=== PATIENT | male | born 1945 | race Caucasian/White ===

== ENCOUNTER 2018-06-22 23:08 | Emergency (ER) | payer MEDICARE ==
[~2018-06-22] VITALS: Ht 152.4 cm; Wt 49.9 kg
[2018-06-22] MEDS ORDERED: ASPI81CH PO (23:22)
[2018-06-22 23:54] LABS: BASOPHILS ABSOLUTE AUTO 0.04 K/mm3 (0.00-0.23); BASOPHILS PERCENT AUTO 0 % (0-2); EOSINOPHILS PERCENT AUTO 1 % (0-6); Hematocrit 41.8 % (37.0-53.0); Hemoglobin 14.3 g/dL (13.5-17.5); IMMATURE GRAN ABSOLUTE AUTO 0.06 K/mm3 (0.00-0.10); IMMATURE GRAN PERCENT AUTO 1 % (0-1); LYMPHOCYTES ABSOLUTE AUTO 1.24 K/mm3 (0.84-5.20); LYMPHOCYTES PERCENT AUTO 11 % (21-46); MONOCYTES ABSOLUTE AUTO 0.63 K/mm3 (0.16-1.47); MONOCYTES PERCENT AUTO 6 % (4-13); Mean Corpuscular HGB 33.6 pg (26.0-34.0); Mean Corpuscular HGB Conc 34.2 g/dL (31.5-36.5); Mean Corpuscular Volume 98 fL (80-100); Mean Platelet Volume 8.9 fL (9.1-12.4); NEUTROPHILS ABSOLUTE AUTO 9.21 K/mm3 (1.96-9.15); NEUTROPHILS PERCENT AUTO 82 % (41-73); Platelet Count 400 K/mm3 (150-400); RDW Coefficient Variation 11.9 % (11.7-14.2); Red Blood Cell Count 4.26 M/mm3 (4.30-5.90); White Blood Cell Count 11.28 K/mm3 (4.00-11.30)
[2018-06-23 00:06] LABS: Alanine Aminotransfer (ALT/SGP 11 U/L (12-78); Albumin, Blood 3.3 g/dL (3.4-5.0); Albumin/Globulin Ratio 0.8 (0.8-1.8); Alk Phos 95 U/L (50-136); Anion Gap 8 mmol/L (6-16); Aspartate Aminotrans (AST/SGOT 8 U/L (12-37); Bilirubin, Total 0.3 mg/dL (0.1-1.0); Blood Urea Nitrogen 22 mg/dL (8-24); Bun/Creatinine Ratio 35.3 (12.0-20.0); CO2, Blood 27 mmol/L (21-32); Calcium, Blood 8.5 mg/dL (8.5-10.1); Chloride, Blood 104 mmol/L (98-108); Creatinine, Blood 0.62 mg/dL (0.60-1.20); Globulin, Blood 4.1 g/dL (2.2-4.0); Glomerular Filtration Rate >60 (60-); Glucose, Blood 116 mg/dL (70-99); Potassium, Blood 3.2 mmol/L (3.5-5.5); Sodium, Blood 139 mmol/L (136-145); Total Protein, Blood 7.4 g/dL (6.4-8.2)
[2018-06-23 00:40] LABS: Source, Urine Clean Catch
[2018-06-23 00:43] LABS: Bilirubin, Urine Neg (Neg); Blood, Urine Neg (Neg); Glucose Qualitative, Urine 2+ (Neg); Ketones, Urine 1+ (Neg); Leukocyte Esterase, Urine 1+ (Neg); Nitrite, Urine Neg (Neg); Protein, Urine 1+ (Neg); Urobilinogen, Urine 1+ (Normal)
[2018-06-23 00:45] LABS: Appearance, Urine Clear (Clear); Color, Urine Yellow (P-Yellow)
[2018-06-23 00:49] LABS: Bacteria Mod /hpf; Red Blood Cells, Urine 0-2 /hpf (0-2); Squamous Epithelial Cells Not Seen /hpf (Few); White Blood Cells, Urine 0-2 /hpf (0-5)
[2018-06-23 00:50] LABS: Calcium Oxalate Crystals Few /hpf
[2018-06-23] MEDS ORDERED: CEPH500 PO (01:05)
== END 2018-06-23 01:53 | disposition home or self-care (01) ==
LOC: ER 23:08
PROVIDERS: Emergency Medicine
DX: N39.0 Urinary tract infection, site not specified (principal); Z79.82 Long term (current) use of aspirin; F03.90 Unspecified dementia, unspecified severity, without behavioral disturbance, psychotic disturbance, mood disturbance, and anxiety
CPT/HCPCS: 71046; 80053; 81001; 85025; 87086; 93005; 93010; 99285-25

== ENCOUNTER 2019-12-20 09:53 | Inpatient (IN) | payer OTHER ==
[~2019-12-20] VITALS: Ht 180.3 cm; Wt 55.8 kg
[~2019-12-20 09:53] MED LIST: ASPI81CH PO; Aspirin EC81 MG PO; CEPH500 PO; Flomax0.4 MG PO; MIRT15 PO; OLAN5 PO; ZYRTEC10 M1 PO
[2019-12-20 10:22] LABS: BASOPHILS ABSOLUTE AUTO 0.03 K/mm3 (0.00-0.23); BASOPHILS PERCENT AUTO 1 % (0-2); EOSINOPHILS ABSOLUTE AUTO 0.04 K/mm3 (0.00-0.68); EOSINOPHILS PERCENT AUTO 1 % (0-6); Hematocrit 46.8 % (37.0-53.0); Hemoglobin 15.1 g/dL (13.5-17.5); IMMATURE GRAN ABSOLUTE AUTO 0.02 K/mm3 (0.00-0.10); IMMATURE GRAN PERCENT AUTO 0 % (0-1); LYMPHOCYTES ABSOLUTE AUTO 0.91 K/mm3 (0.84-5.20); LYMPHOCYTES PERCENT AUTO 17 % (21-46); MONOCYTES ABSOLUTE AUTO 0.28 K/mm3 (0.16-1.47); MONOCYTES PERCENT AUTO 5 % (4-13); Mean Corpuscular HGB 31.3 pg (26.0-34.0); Mean Corpuscular HGB Conc 32.3 g/dL (31.5-36.5); Mean Corpuscular Volume 97 fL (80-100); Mean Platelet Volume 9.3 fL (9.1-12.4); NEUTROPHILS ABSOLUTE AUTO 4.11 K/mm3 (1.96-9.15); NEUTROPHILS PERCENT AUTO 76 % (41-73); Platelet Count 219 K/mm3 (150-400); RDW Coefficient Variation 13.3 % (11.7-14.2); RDW Standard Deviation 48.1 fL (35.1-46.3); Red Blood Cell Count 4.82 M/mm3 (4.30-5.90); White Blood Cell Count 5.39 K/mm3 (4.00-11.30)
[2019-12-20 10:36] LABS: Alanine Aminotransfer (ALT/SGP 11 U/L (12-78); Albumin, Blood 3.3 g/dL (3.4-5.0); Albumin/Globulin Ratio 0.9 (0.8-1.8); Alk Phos 82 U/L (50-136); Anion Gap 6 mmol/L (6-16); Aspartate Aminotrans (AST/SGOT 10 U/L (12-37); Bilirubin, Total 0.3 mg/dL (0.1-1.0); Blood Urea Nitrogen 12 mg/dL (8-24); Bun/Creatinine Ratio 17.1 (12.0-20.0); CO2, Blood 26 mmol/L (21-32); Calcium, Blood 8.7 mg/dL (8.5-10.1); Chloride, Blood 107 mmol/L (98-108); Globulin, Blood 3.7 g/dL (2.2-4.0); Glomerular Filtration Rate >60 (60-); Glucose, Blood 141 mg/dL (70-99); Potassium, Blood 4.3 mmol/L (3.5-5.5); Sodium, Blood 139 mmol/L (136-145)
[2019-12-20] MEDS ORDERED: REMERON15 MG PO (11:48)
[2019-12-20 11:51] LABS: Prothrombin Time Results 10.7 Sec (9.7-11.5)
--- NOTE | 2019-12-20 12:38 | NUR ---
pt arrived to pcu 12 from ed, nstemi, will hang hep gtt, pt able to answer some quesions, hx dementia, pleasant and cooperative with care, flat affect, lungs are dim t/o, resp even and unlabored, no cough noted, hrr, tele in place running sr per monitor, see strip, no edema noted, ppp+1, cap refill <3sec, vs stable, afebrile, iv site is clear and patent, btx4, abd flat soft nontender, wears briefs, skin dry, has old bed sore on right hip, mostly healed, maew, general weakness, geraldine, call light in reach.
--- NOTE | 2019-12-20 13:27 | NUR ---
SIGNED CONSENT FOR ANGIO IS PLACED IN PT CHART
--- NOTE | 2019-12-20 17:27 | NUR ---
SHIFT NOTE THIS RN ASSUMED PT CARE AT 1300 SHORTLY AFTER PT ARRIVED TO THE PCU. PT CONSENTS WERE SIGNED. HEPARIN DRIP AND NS DRIP ARE INFUSING PER ORDERS. PT IS RESTING IN BED CP FREE. CRITICAL TROPONIN IS CALLED FROM LAB THIS EVENING, PT IS ON SCHEDULE FOR ANGIO IN THE AM AND HAS BEEN CONSULTED BY DR FIGUEROA SINCE HIS ARRIVAL. VSS. PT CONTINUES TO DENY CP AT THE TIME OF THIS NOTE. PT IS ALERT, HE IS SLOW TO ANSWER QUESTIONS, HAS HX OF DEMENTIA BUT APPEARS TO BE AT HIS REPORTED BASELINE FROM PREVIOUS RN REPORT.
[2019-12-21 00:16] LABS: Hematocrit 39.2 % (37.0-53.0); Hemoglobin 13.1 g/dL (13.5-17.5); Mean Corpuscular HGB 31.4 pg (26.0-34.0); Mean Corpuscular HGB Conc 33.4 g/dL (31.5-36.5); Mean Corpuscular Volume 94 fL (80-100); Platelet Count 241 K/mm3 (150-400); RDW Coefficient Variation 13.2 % (11.7-14.2); RDW Standard Deviation 45.4 fL (35.1-46.3); Red Blood Cell Count 4.17 M/mm3 (4.30-5.90); White Blood Cell Count 6.31 K/mm3 (4.00-11.30)
[2019-12-21 00:30] LABS: Anion Gap 5 mmol/L (6-16); Blood Urea Nitrogen 9 mg/dL (8-24); Bun/Creatinine Ratio 12.6 (12.0-20.0); CO2, Blood 28 mmol/L (21-32); Calcium, Blood 8.2 mg/dL (8.5-10.1); Chloride, Blood 110 mmol/L (98-108); Creatinine, Blood 0.72 mg/dL (0.60-1.20); Glomerular Filtration Rate >60 (60-); Glucose, Blood 83 mg/dL (70-99); Potassium, Blood 3.7 mmol/L (3.5-5.5); Sodium, Blood 143 mmol/L (136-145)
--- NOTE | 2019-12-21 05:20 | NUR ---
END OF SHIFT SUMMARY PT AXO. DENIES CP T/O NIGHT. ANSWERING Q'S APPROPRIATELY. VSS. HEART RHYTHM NOTED TO WITCH BETWEEN SINUS RHTYHM TO A POSSIBLE WAP, TO AN ACCELERATED JUNCTIONAL, AND OCCASIONAL PVC'S AND TRIPLETS. PT ASYMPTOMATIC TO THESE RHYTHMS. PT ON RA. PT CONTINUES ON HEPARIN GTT. TROP HAS INCREASED SIGNIFICANTLY. PT NPO MIDNIGHT FOR ANGIOGRAM IN AM. BED ALARM IN PLACE. PT RESTING QUIETLY IN BED T/O SHIFT. VERY PLEASANT AND THANKFUL FOR CARE. WILL CONTINUE TO MONITOR UNTIL SHIFT CHANGE.
--- NOTE | 2019-12-21 07:39 | NUR ---
ASSUMED PATIENT CARE. PATIENT RESTING COMFORTABLY IN BED, CONVERSING WITH NURSING STAFF. NO SIGNS OF ACUTE DISTRESS, PATIENT DENIES CHEST PAIN. PATIENT TAKEN TO MEDICAL IMAGING DIRECTOR FOR ANGIO.
--- NOTE | 2019-12-21 09:48 | NUR ---
PATIENT RETURNED FROM [facility], TR BAND IN PLACE ON R. RADIAL SITE. NO DISCHARGE NOTED, NO HEMATOMA NOTED. PATIENT DENIES PAIN, WCTM.
--- NOTE | 2019-12-21 11:53 | NUR ---
echocardiogram completed
--- NOTE | 2019-12-21 17:34 | NUR ---
PATIENT WENT TO [facility] TODAY FOR ANGIO, R RADIAL ACCESS SITE. X2 STENTS PLACED. PATIENT DENIED CHEST PAIN THIS SHIFT, VSS. TR BAND SUCCESSFUL REMOVED, NO SIGNS OF BLEEDING/HEMATOMA. PATIENT ABLE TO AMBULATE INDEPENDENTLY, SBA FOR ASSISTANCE WITH R ARMBOARD. PLAN IS TO CONTINUE MEDICAL MANAGEMENT FROM THIS POINT. PATIENT ON ROOM AIR THIS SHIFT, TOLERATING [facility] SOFT DIET WELL.
--- NOTE | 2019-12-21 17:43 | NUR ---
PATIENT ADMITTED VIA ED THIS SHIFT, DAUGHTER AT BEDSIDE. PATIENT DENIES CHEST PAIN, ENDORSES IMPROVEMENT IN SOB POST NEB TREATMENT. PATIENT REMAINS ON HIGH FLOW NC AT 6 L, SATS IN LOW 90S. PATIENT HYPERTENSIVE IN ED, BP IMPROVEMENT ON TRANSFER TO PCU. PLAN IS TO CONTINUE HOME MEDS, MONITOR H&H WITH HX OF ANEMIA, PLAN IS TO CONTINUE DIURESIS VIA IV LASIX.
--- NOTE | 2019-12-21 20:51 | NUR ---
PT RESTING COMFORTABLY IN BED; CHEERFUL; PT REFUSED DINNER TRAY.
--- NOTE | 2019-12-21 20:52 | NUR ---
74 Y/O SLENDER MALE RESTED COMFORTABLY.
--- NOTE | 2019-12-22 05:45 | NUR ---
SHIFT SUMMARY: 74 Y/O MALE RESTED COMFORTABLY ALL SHIFT; PTS RIGHT WRIST WITHOUT EDEMA OR PAIN WHILE WEARING ARM BOARD; ALERT AND ORIENTED X 4; DENIES PAIN OR NAUSEA; TELEMETRY REFLECTS NSR PER BENIGNO--[employer] BOAT FINISHER; BED LOW POSITION WITH CALL LIGHT AT SIDE.
[2019-12-22 06:01] LABS: BASOPHILS ABSOLUTE AUTO 0.04 K/mm3 (0.00-0.23); BASOPHILS PERCENT AUTO 1 % (0-2); EOSINOPHILS PERCENT AUTO 2 % (0-6); Hematocrit 37.7 % (37.0-53.0); Hemoglobin 12.4 g/dL (13.5-17.5); IMMATURE GRAN ABSOLUTE AUTO 0.02 K/mm3 (0.00-0.10); IMMATURE GRAN PERCENT AUTO 0 % (0-1); LYMPHOCYTES ABSOLUTE AUTO 1.37 K/mm3 (0.84-5.20); LYMPHOCYTES PERCENT AUTO 20 % (21-46); MONOCYTES ABSOLUTE AUTO 0.49 K/mm3 (0.16-1.47); MONOCYTES PERCENT AUTO 7 % (4-13); Mean Corpuscular HGB Conc 32.9 g/dL (31.5-36.5); Mean Corpuscular Volume 94 fL (80-100); Mean Platelet Volume 9.4 fL (9.1-12.4); NEUTROPHILS ABSOLUTE AUTO 4.68 K/mm3 (1.96-9.15); NEUTROPHILS PERCENT AUTO 70 % (41-73); Platelet Count 224 K/mm3 (150-400); RDW Coefficient Variation 13.3 % (11.7-14.2); RDW Standard Deviation 45.7 fL (35.1-46.3)
[2019-12-22 06:20] LABS: Anion Gap 4 mmol/L (6-16); Blood Urea Nitrogen 7 mg/dL (8-24); Bun/Creatinine Ratio 12.4 (12.0-20.0); CO2, Blood 26 mmol/L (21-32); Calcium, Blood 8.1 mg/dL (8.5-10.1); Chloride, Blood 109 mmol/L (98-108); Creatinine, Blood 0.57 mg/dL (0.60-1.20); Glomerular Filtration Rate >60 (60-); Glucose, Blood 78 mg/dL (70-99); Potassium, Blood 3.6 mmol/L (3.5-5.5); Sodium, Blood 139 mmol/L (136-145)
[2019-12-22] MEDS ORDERED: CLOP75 PO (11:22)
[2019-12-22] MEDS ORDERED: LIPITOR80 MG PO (11:22)
[2019-12-22] MEDS ORDERED: METO25 PO (11:23)
--- NOTE | 2019-12-22 12:12 | NUR ---
DISCHARGE TO ASSISTED LIVING PATIENT DISCHARGED TO [facility]. PATIENTS SON REQUESTED MEDICATIONS TO BE FILLED AT [facility]. HE ARRIVED TO TRANSPORT PATIENT TO [facility]. DISCHARGE INSTRUCTIONS REVIEWED WITH PATIENT AND HIS SON. BOTH ARE AGREEABLE TO THE PLAN AND WERE PROVIDED AN OPPORTUNITY TO ASK QUESTIONS. PATIENT WAS ESCRTED OUT VIA WHEELCHAIR BY RN INVASIVE. PATIENT STABLE AT TIME OF DISCHARGE.
== END 2019-12-22 12:12 | disposition home or self-care (01) | DRG 247 ==
LOC: ER 09:53 → PCU 11:31 → ENPENDDIS 12-22 10:09 → PCU 12-22 12:12
PROVIDERS: Emergency Medicine; Internal Medicine; Nurse Practitioner Acute Care; ADMIT Internal Medicine
PROC: 027135Z Dilation of Coronary Artery, Two Arteries with Two Drug-eluting Intraluminal Devices, Percutaneous Approach (ICD-10-PCS; principal; 2019-12-21)
PROC: 4A023N7 Measurement of Cardiac Sampling and Pressure, Left Heart, Percutaneous Approach (ICD-10-PCS; 2019-12-21)
PROC: B2111ZZ Fluoroscopy of Multiple Coronary Arteries using Low Osmolar Contrast (ICD-10-PCS; 2019-12-21)
DX: I21.4 Non-ST elevation (NSTEMI) myocardial infarction (principal); F03.91 Unspecified dementia, unspecified severity, with behavioral disturbance; Z87.891 Personal history of nicotine dependence; Z79.82 Long term (current) use of aspirin; N40.0 Benign prostatic hyperplasia without lower urinary tract symptoms; Z86.73 Personal history of transient ischemic attack (TIA), and cerebral infarction without residual deficits; I10 Essential (primary) hypertension; I49.3 Ventricular premature depolarization; I49.1 Atrial premature depolarization; I25.10 Atherosclerotic heart disease of native coronary artery without angina pectoris
CPT/HCPCS: 36415; 71046; 76937; 80048; 80053; 83690; 83735; 84484; 85025; 85027; 85347; 85610; 85730; 93005; 93010; 93306; 93458; 99152; 99153; 99285-25; A9270-GY; C1725; C1769; C1874; C1887; C1894; C9600; C9601; J1644; J2250; J3010; J7030; J7050; Q9967

== ENCOUNTER 2020-01-23 12:42 | Observation (INO) | payer OTHER ==
[~2020-01-23] VITALS: Ht 182.9 cm; Wt 53.0 kg
[~2020-01-23 12:42] MED LIST changes: +CLOP75 PO; +LIPITOR80 MG PO; +METO25 PO; +REMERON15 MG PO
[2020-01-23] MEDS ORDERED: METO25ER PO (12:56)
[2020-01-23] MEDS ORDERED: MIRT15 PO (12:57)
[2020-01-23] MEDS ORDERED: OLAN5 PO ×2 (12:57→13:02)
[2020-01-23] MEDS ORDERED: SELENIUM SULFIDE (12:58)
[2020-01-23] MEDS ORDERED: ERYT.5TO BOTHEYES (12:59)
[2020-01-23] MEDS ORDERED: [UNRECOGNIZED DRUG - OTHER] (13:01)
[2020-01-23] MEDS ORDERED: ASPIR 8181 M1 PO (13:02)
[2020-01-23 14:35] LABS: BASOPHILS ABSOLUTE AUTO 0.04 K/mm3 (0.00-0.23); BASOPHILS PERCENT AUTO 1 % (0-2); EOSINOPHILS ABSOLUTE AUTO 0.07 K/mm3 (0.00-0.68); EOSINOPHILS PERCENT AUTO 1 % (0-6); Hematocrit 43.1 % (37.0-53.0); IMMATURE GRAN ABSOLUTE AUTO 0.03 K/mm3 (0.00-0.10); IMMATURE GRAN PERCENT AUTO 0 % (0-1); LYMPHOCYTES ABSOLUTE AUTO 1.11 K/mm3 (0.84-5.20); LYMPHOCYTES PERCENT AUTO 16 % (21-46); MONOCYTES ABSOLUTE AUTO 0.53 K/mm3 (0.16-1.47); MONOCYTES PERCENT AUTO 8 % (4-13); Mean Corpuscular HGB 30.9 pg (26.0-34.0); Mean Corpuscular HGB Conc 32.5 g/dL (31.5-36.5); Mean Corpuscular Volume 95 fL (80-100); Mean Platelet Volume 9.4 fL (9.1-12.4); NEUTROPHILS ABSOLUTE AUTO 5.29 K/mm3 (1.96-9.15); NEUTROPHILS PERCENT AUTO 75 % (41-73); Platelet Count 310 K/mm3 (150-400); RDW Coefficient Variation 13.6 % (11.7-14.2); RDW Standard Deviation 47.6 fL (35.1-46.3); Red Blood Cell Count 4.53 M/mm3 (4.30-5.90); White Blood Cell Count 7.07 K/mm3 (4.00-11.30)
[2020-01-23 16:08] LABS: Acetaminophen, Random <2.0 ug/mL (10.0-30.0); Salicylate <1.7 mg/dL (2.8-20.0); Thyroxine (T4) 10.5 ug/dL (4.5-12.1)
[2020-01-23 16:09] LABS: Alanine Aminotransfer (ALT/SGP 23 U/L (12-78); Albumin, Blood 3.5 g/dL (3.4-5.0); Albumin/Globulin Ratio 0.9 (0.8-1.8); Alk Phos 110 U/L (50-136); Anion Gap 11 mmol/L (6-16); Aspartate Aminotrans (AST/SGOT 12 U/L (12-37); Bilirubin, Total 0.5 mg/dL (0.1-1.0); Blood Urea Nitrogen 11 mg/dL (8-24); Bun/Creatinine Ratio 16.9 (12.0-20.0); CO2, Blood 25 mmol/L (21-32); Calcium, Blood 9.2 mg/dL (8.5-10.1); Chloride, Blood 105 mmol/L (98-108); Creatinine, Blood 0.65 mg/dL (0.60-1.20); Globulin, Blood 4.1 g/dL (2.2-4.0); Glomerular Filtration Rate >60 (60-); Glucose, Blood 91 mg/dL (70-99); Potassium, Blood 4.3 mmol/L (3.5-5.5); Sodium, Blood 141 mmol/L (136-145); Total Protein, Blood 7.6 g/dL (6.4-8.2)
[2020-01-23 16:32] LABS: Ethanol (Alcohol), Blood, Med <3 mg/dL
--- NOTE | 2020-01-24 05:46 | NUR ---
SHIFT SUMMARY- PT. NEW ADMIT FROM ED. SI PRECAUTIONS, ON MODERATE RISK. PT. A&O, [address] ZIMMERMAN CONSULTED. NO ACUTE EVENTS OVERNIGHT. PT. ASLEEP MOST OF THE SHIFT, NO APPARENT DISTRESS NOTED. NO COMPLAINT THIS SHIFT. PT. ON CAMERA. WILL CONT TO MONITOR.
--- NOTE | 2020-01-24 07:00 | NUR ---
CAMERA VERIFIED VERIFIED WITH REMOTE MONITORING THAT CAMERA IS ON.
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
--- NOTE | 2020-01-25 06:27 | NUR ---
SHIFT SUMMARY- NO ACUTE EVENTS OVERNIGHT. PT. DENIED SUICIDAL THOUGHTS DURING ASSESSMENT. PT. CONTS ON MODERATE RISK PER ORDER. APPEARS DEPRESSED. SLEPT ON/OFF T/O THE SHIFT. USES URINAL AT BEDSIDE. NO COMPLAINTS DURING THE NIGHT, VSS. CALL LIGHT WITHIN REACH AND SIDE RAILS UPX2. WILL CONT TO MONITOR.
--- NOTE | 2020-01-25 07:20 | NUR ---
Camera On Verified with remote monitoring that camera is on and patient is within visual field.
--- NOTE | 2020-01-25 10:11 | NUR ---
DC MODERATE RISK SI PRECAUTIONS PATIENT IS DENYING SI AT THIS TIME. DR. FRANCO NOTIFIED, RECEIVED VERBAL ORDER TO DC MODERATE RISK SI PRECAUTIONS BUT TO KEEP PATIENT ON CAMERA.
--- NOTE | 2020-01-25 16:29 | NUR ---
Shift Summary Ambulated in hallway x 1 with encouragement and 1P c gaitbelt. Appetite is improved some compared to yesterday, denies pain, nausea. Son (Grazyna) wants to let CMs know that he is the primary contact for everything regarding patient as he is POA. Will pass this onto oncoming RN so that CMs receive it. No acute changes or concerns, will continue to monitor.
--- NOTE | 2020-01-26 05:08 | NUR ---
SHIFT SUMMARY- NO ACUTE CHANGES OVERNIGHT. PT. SLEEPING COMFORTABLY IN BED T/O THE NIGHT. NO APPARENT DISTRESS NOTED. SI PRECAUTIONS D/C'D, REMAINS ON CAMERA. PT. DENIED ANY NEEDS THIS SHIFT. VSS. CALL LIGHT WITHIN REACH, SIDE RAILS UPX2, AND BED ALARM ON. WILL CONT TO MONITOR.
--- NOTE | 2020-01-26 15:13 | NUR ---
ALERT. CAMERA ON. COOPERATIVE. SON, TYSON, HAS TALKED TO HOSPITALIST, , AND CARE MANAGEMENT, ROSALINDA GOLDSTEIN. DENIES; SOB, PAIN , N/V. UNLABORED RESPIRATIONS. SLEEPING MOST OF SHIFT. WCTM.
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
--- NOTE | 2020-01-27 18:45 | NUR ---
ALERT. WAS IN TO SEE AND D'C FROM HIS SERVICE. POSSIBLE PLACEMENT TO [facility] PER SON. UNLABORED RESPIRATIONS. COOPERATIVE. PLEASANT. AMBULATORY TO BATHROOM WITH STANDBY ASSIST. TM
--- NOTE | 2020-01-28 18:24 | NUR ---
PT HAS BEEN AOX2 MILD CONFUSION AND CAN BE IMPULSIVE. PT HAS BEEN A ONE PERSON TRANSFER TO BED AND CHAIR. PT DOING WELL AND HAS BEEN EATING. PT DENIED PAIN. WILL CONTINUE TO MONITOR.
--- NOTE | 2020-01-29 05:47 | NUR ---
SHIFT SUMMARY PT IS A 74 Y/O MALE, ADMITTED FOR DEMENTIA WITH BEHAVIOURAL DISTURBANCES. HE IS A&O X 2, COOPERATIVE WITH CARE, SBA TO THE BATHROOM. NO COMPLAINTS OF PAIN, NAUSEA OR SOB. VITAL SIGNS STABLE. PT SLEPT WELL THROUGH THE NIGHT. NO ACUTE CHANGES IN PT CONDITION NOTED. WILL CONTINUE TO MONITOR AND TREAT PER EMAR UNTIL HAND OFF TO DAY SHIFT RN.
--- NOTE | 2020-01-29 16:32 | NUR ---
SUMMARY PT IS A/O X2, FORGETFUL OF DATE. HE IS THIN/FRAIL, UP w 1 ASSIST TO CHAIR. BEHAVIOR HAS BEEN CALM/COOPERATIVE. STATE NO PAIN/DISCOMFORT. UP FOR MEALS. HE DECLINED SHOWER TODAY, REHABILITATION PSYCHOLOGIST PROVIDE BEDBATH. ALLISON GIL R HIP CDI, HE STATES "BEDSORE" HAVE ENCOURAGED HIM TO TURN IN BED, OOB TO CHAIR. VSS. AWAITING SAFE D/C PLAN/PLACEMENT.
--- NOTE | 2020-01-30 05:30 | NUR ---
SHIFT SUMMARY PT IS A 74 Y/O MALE, ADMITTED FOR DEMENTIA WITH BEHAVIOURAL DISTURBANCE. HE IS A&O X 2, SBA TO THE BATHROOM. NO C/O PAIN, NAUSEA OR SOB. PT IS VERY FRAIL AND TIRED-APPEARING, AND SLEPT THROUGH THE NIGHT. VITAL SIGNS STABLE. NO ACUTE CHANGES IN PT CONDITION NOTED. WILL CONTINUE TO MONITOR AND TREAT PER EMAR UNTIL HAND OFF TO DAY SHIFT RN.
[2020-01-30] MEDS ORDERED: DONEPEZIL HCL10 MG PO (09:04)
[2020-01-30] MEDS ORDERED: SENN187 PO (09:05)
--- NOTE | 2020-01-30 10:01 | NUR ---
EAR NOSE THROAT SURGEONSOCIAL SECRETARY CALL THIS AM STATE THAT PT HAS BEEN ACCEPTED @ [facility], DR [address]USH [address] D/C ORDERS, FAXED TO FACILITY. PT SON WILL BE IN TO PROVIDE TRANSPORTATION. PT STATE SATISFACTION w NEW LIVING ARRANGEMENTS. HE IS A/O X2, CALM/PLEASANT/COOPERATIVE HOWEVER SOMEWHAT FLAT AFFECT. PARTIAL BEDBATH PROVIDED, ASSISTED TO DRESS/GATHER BELONGINGS. IV D/C INTACT. D/C INSTRUCT REVIEWED w PT & HIS SON TYSON. THEY EXPRESS APPRECIATION. W/C [facility] PROVIDED.
== END 2020-01-30 09:54 | disposition home or self-care (01) ==
LOC: ER 12:42 → MEDS 12:43 → ER 20:47 → MEDS 20:57 → ENPENDDIS 01-30 08:32 → MEDS 01-30 09:54
PROVIDERS: Emergency Medicine; ADMIT Internal Medicine
DX: F03.91 Unspecified dementia, unspecified severity, with behavioral disturbance (principal); E78.5 Hyperlipidemia, unspecified; I25.10 Atherosclerotic heart disease of native coronary artery without angina pectoris; I25.2 Old myocardial infarction; Z86.73 Personal history of transient ischemic attack (TIA), and cerebral infarction without residual deficits; F10.11 Alcohol abuse, in remission; Z95.5 Presence of coronary angioplasty implant and graft; Z79.82 Long term (current) use of aspirin; Z79.02 Long term (current) use of antithrombotics/antiplatelets; Z79.899 Other long term (current) drug therapy; Z87.891 Personal history of nicotine dependence
CPT/HCPCS: 80053; 84436; 84443; 85025; 99285; A9270-GY; G0378; G0480; Q3014

== ENCOUNTER 2020-03-30 21:54 | Emergency (ER) | payer OTHER ==
[~2020-03-30] VITALS: Ht 182.9 cm; Wt 53.5 kg
[~2020-03-30 21:54] MED LIST changes: +ASPIR 8181 M1 PO; +DONEPEZIL HCL10 MG PO; +ERYT.5TO BOTHEYES; +METO25ER PO; +SELENIUM SULFIDE; +SENN187 PO; +[UNRECOGNIZED DRUG - OTHER]
== END 2020-03-30 23:39 | disposition home or self-care (01) ==
LOC: ER 21:54
DX: L76.21 Postprocedural hemorrhage of skin and subcutaneous tissue following a dermatologic procedure (principal); I25.2 Old myocardial infarction; F03.91 Unspecified dementia, unspecified severity, with behavioral disturbance; Y84.8 Other medical procedures as the cause of abnormal reaction of the patient, or of later complication, without mention of misadventure at the time of the procedure; Z79.02 Long term (current) use of antithrombotics/antiplatelets; Z79.899 Other long term (current) drug therapy; Z79.82 Long term (current) use of aspirin; Z86.73 Personal history of transient ischemic attack (TIA), and cerebral infarction without residual deficits; Z87.891 Personal history of nicotine dependence
CPT/HCPCS: 99283-25

== ENCOUNTER → 2021-06-01 | Outpatient (CLI) | payer OTHER ==
[2021-06-01 20:15] LABS: Appearance, Urine Hazy (Clear); Bilirubin, Urine Neg (Neg); Blood, Urine Neg (Neg); Color, Urine Yellow (P-Yellow); Glucose Qualitative, Urine Neg (Neg); Ketones, Urine Neg (Neg); Leukocyte Esterase, Urine Neg (Neg); Nitrite, Urine Pos (Neg); Protein, Urine 1+ (Neg); Urobilinogen, Urine NORM (Normal)
[2021-06-01 20:54] LABS: Bacteria Many /hpf; Mucus Mod (0-Heavy); Red Blood Cells, Urine 0-2 /hpf (0-2); Squamous Epithelial Cells Few /hpf (Few)
== END ==
LOC: LAB 09:30 → LAB SHORT 09:30
PROVIDERS: Internal Medicine
DX: N39.0 Urinary tract infection, site not specified (principal)
CPT/HCPCS: 81001

== ENCOUNTER → 2022-10-25 | Outpatient (CLI) | payer OTHER | LOC: LAB SHORT 13:53 → PLD 13:53 | DX: R23.8 Other skin changes (principal) | CPT/HCPCS: 88341; 88342 ==

== ENCOUNTER → 2023-01-24 | Outpatient (CLI) | payer OTHER ==
[2023-01-24 16:57] LABS: Percent Saturation 5.6 % (20.0-50.0)
== END ==
LOC: LAB 13:30 → LAB SHORT 13:30
PROVIDERS: Student in an Organized Health Care Education/Training Program
DX: D50.9 Iron deficiency anemia, unspecified (principal)
CPT/HCPCS: 82728; 83540; 83550

== ENCOUNTER 2024-04-30 10:45 | Emergency (ER) | payer OTHER ==
[~2024-04-30] VITALS: Ht 177.8 cm; Wt 54.4 kg
[2024-04-30 11:03] VITALS: BP 126/80
[2024-04-30] MEDS ORDERED: Acetaminophen 325 MG TABLET PO ONE (11:50)
== END 2024-04-30 16:25 | disposition home or self-care (01) ==
LOC: ER 10:45
DX: J10.1 Influenza due to other identified influenza virus with other respiratory manifestations (principal); F03.90 Unspecified dementia, unspecified severity, without behavioral disturbance, psychotic disturbance, mood disturbance, and anxiety; I25.2 Old myocardial infarction; N40.0 Benign prostatic hyperplasia without lower urinary tract symptoms; Z87.891 Personal history of nicotine dependence; Z86.73 Personal history of transient ischemic attack (TIA), and cerebral infarction without residual deficits; Z79.01 Long term (current) use of anticoagulants; Z79.82 Long term (current) use of aspirin; Z79.899 Other long term (current) drug therapy
CPT/HCPCS: 99284; A9270